=== PATIENT | male | born 1955 | race Caucasian/White ===

== ENCOUNTER → 2018-08-31 09:04 | Outpatient (CLI) | payer OTHER, SELFPAY ==
--- NOTE | 2018-08-31 | DI.US.S_ITS ---
PROCEDURE: US SCROTUM INDICATIONS: POSSIBLE INFECTION TECHNIQUE: Real-time scanning was performed of the scrotum and testicles, with image documentation. Color and pulse Doppler interrogation was performed of both testicles. COMPARISON: None. FINDINGS: Right: Testicle is normal in size at 4.3 x 1.5 x 2.8 cm, and homogenous in echotexture. Epididymis is normal in overall size and morphology. Sub-centimeters epididymal cyst. Small hydrocele. No varicoceles. Overlying scrotal skin is normal in thickness. Left: Testicle is normal in size at 4.4 x 1.5 x 3.4 cm, and homogeneous in echotexture. Epididymis is normal in overall size and morphology. Sub subcentimeter epididymal cyst. Small hydrocele. No varicoceles. Overlying scrotal skin is normal in thickness. Doppler: Color and pulse Doppler demonstrate normal and symmetric arterial flow in both testicles. IMPRESSION: 1. Tubular ectasia the left rete testis otherwise the testicles are normal bilaterally. Intermittent testicular torsion cannot be excluded and clinical correlation recommended. 2. Small bilateral hydroceles. 3. Small bilateral epididymal cysts. Dictated by: Michael OCAMPO Interpreted: Josesito Martinez MD on 08/31/2018 at 11:39 Approved by: Josesito Martinez M.D. on 08/31/2018 at 16:59
== END ==
PROVIDERS: PCP Family Medicine; Visit Provider Family Medicine
DX: N43.3 Hydrocele, unspecified (principal); N50.3 Cyst of epididymis
CPT/HCPCS: 76870

== ENCOUNTER → 2018-10-22 11:17 | Outpatient (CLI) | payer OTHER, SELFPAY ==
--- NOTE | 2018-10-22 | DI.MRI.S_ITS ---
PROCEDURE: MR LUMBAR SPINE WO CON INDICATIONS: LOW BACK PAIN TECHNIQUE: Noncontrast sagittal T1 spin echo and T2 fast echo, sagittal STIR, axial T1 and T2 fast spin echo through the lumbar spine. In cases with scoliosis, additional coronal T2 fast spin echo may be performed. COMPARISON: [facility] [place], CR, XR LUMBAR SPINE WITH OLBIQUES PLUS FLEXION EXTENSION, 10/08/2018, 15:06. FINDINGS: Image quality: Excellent. Alignment and Curvature: There is normal bony alignment. Bone Marrow: Degenerative endplate signal changes are present. No acute vertebral body compression fractures. There is surgical fusion of SI joints bilaterally. Spinal Cord: Conus medullaris terminates at the T12-L1 level. Visualized cord demonstrates normal signal and size. Paraspinous Soft Tissues: No paravertebral masses. L1-L2: Preserved disc height. Mild disc desiccation. There is minimal posterior disc bulge. The central canal is patent. No foraminal stenosis. L2-L3: Mild loss of disc height and disc desiccation. There is diffuse posterior disc bulge. Mild bilateral facet arthropathy and hypertrophy of ligamentum flavum. The central canal is mildly narrowed. Mild bilateral foraminal stenosis. L3-L4: [id number] loss of disc height and disc desiccation. There is diffuse posterior disc bulge and disc osteophyte complex. There is a superimposed posterior central left paramedian disc protrusion. Mild bilateral facet arthropathy and hypertrophy of ligamentum flavum. The central canal is moderately narrowed. [id number] bilateral foraminal stenosis. L4-L5: Moderate loss of disc height and disc desiccation. There is diffuse posterior disc bulge and disc osteophyte complex. There is a superimposed posterior central left paramedian disc protrusion. Mild bilateral facet arthropathy and hypertrophy of ligamentum flavum. The central canal is mildly narrowed. Moderate bilateral foraminal stenosis. L5-S1: Minimal loss of disc height and moderate disc desiccation. There is diffuse posterior disc bulge and disc osteophyte complex. There is small posterior central annular fissure. Mild bilateral facet arthropathy. The central canal is patent. Mild bilateral foraminal stenosis. IMPRESSION: 1. Multilevel degenerative disc disease and facet arthropathy as described. 2. Moderate central canal stenosis at L3-L4, and mild central canal stenosis at L2-L3 and L4-L5. 3. Multilevel foraminal stenosis as described. Dictated by: Skyla Bruner M.D. on 10/22/2018 at 15:40 Approved by: Skyla Bruner M.D. on 10/22/2018 at 17:39
== END ==
PROVIDERS: PCP Family Medicine; Visit Provider Physical Medicine & Rehabilitation
DX: M54.5 Low back pain (principal); M51.36 Other intervertebral disc degeneration, lumbar region; M51.37 Other intervertebral disc degeneration, lumbosacral region; M48.061 Spinal stenosis, lumbar region without neurogenic claudication; M48.07 Spinal stenosis, lumbosacral region; M47.816 Spondylosis without myelopathy or radiculopathy, lumbar region; M47.817 Spondylosis without myelopathy or radiculopathy, lumbosacral region
CPT/HCPCS: 72148

== ENCOUNTER → 2020-02-02 17:09 | Outpatient (CLI) | payer MEDICARE, MEDICAID, SELFPAY ==
--- NOTE | 2020-02-02 17:11 | DI.MRI.S_ITS ---
PROCEDURE: MR CERVICAL SPINE WO CON INDICATIONS: Spinal stenosis, cervical region TECHNIQUE: Noncontrast sagittal T1 spin echo and T2 fast spin echo, sagittal STIR, foraminal oblique sagittal T2 fast spin echo, and axial gradient echo or T2 fast spin echo through the cervical spine. COMPARISON: None. FINDINGS: Image quality: Excellent. Alignment and Curvature: Loss of normal cervical lordosis. Mild grade 1 retrolisthesis of C3 on C4, C4 and C5, and C5 on C6. Mild grade 1 anterolisthesis of C7 on T1. Bone Marrow: Marrow demonstrates normal overall signal. Spinal Cord: Visualized spinal cord has normal size and signal. No cerebellar tonsillar herniation. Paraspinous Soft Tissues: No paravertebral masses. Prevertebral soft tissues are normal in thickness. C2-C3: Disc desiccation. No significant canal, nor foraminal stenosis. C3-C4: Mild disc height loss and desiccation. Mild diffuse disc bulge. Mild facet and uncovertebral hypertrophy bilaterally. Mild canal stenosis. Mild right greater than left foraminal stenosis. C4-C5: Mild disc height loss and desiccation. Mild diffuse disc bulge. Mild bilateral facet hypertrophy. Mild canal stenosis. Mild bilateral foraminal stenosis. C5-C6: Moderate disc height loss and desiccation. Mild diffuse disc bulge. Moderate facet and uncovertebral hypertrophy bilaterally. Mild canal stenosis. Severe left and moderate right foraminal stenosis. Left C6 nerve root compression. C6-C7: Moderate disc height loss and desiccation. Mild diffuse disc bulge. Mild facet and uncovertebral hypertrophy bilaterally. Mild canal stenosis. Moderate left greater than right foraminal stenosis bilaterally. C7-T1: Mild disc height loss and desiccation. Mild diffuse disc bulge. Mild bilateral facet hypertrophy. Minimal canal stenosis. Mild bilateral foraminal stenosis. IMPRESSION: 1. Multilevel degenerative disc and facet disease, as well as uncovertebral hypertrophy. 2. Mild multilevel canal stenoses. 3. Multilevel foraminal stenoses, worst on the left at C5-C6 where there is associated C6 nerve root compression. Recommend correlation with clinical symptoms to ascertain relevance of this finding. Dictated by: Velma Lindsey M.D. on 02/03/2020 at 8:49 Approved by: Velma Lindsey M.D. on 02/03/2020 at 8:52
== END ==
PROVIDERS: PCP Family Medicine; Referring Provider Physical Medicine & Rehabilitation; Visit Provider Physical Medicine & Rehabilitation
DX: M48.02 Spinal stenosis, cervical region (principal); M50.31 Other cervical disc degeneration, high cervical region
CPT/HCPCS: 72141

== ENCOUNTER → 2024-03-01 09:16 | Outpatient (CLI) | payer MEDICARE, MEDICAID, SELFPAY ==
[2024-03-01 20:29] LABS: Basophils Absolute Auto 0 /uL (0-100); Basophils Percent Auto 0.5 % (0-2); Eosinophils Absolute Auto 0 /uL (0-450); Eosinophils Percent Auto 0.9 % (2-4); Hematocrit 37.9 % (41-53); Hemoglobin 12.4 g/dL (13.5-17.5); Lymphocytes Absolute Auto 1100 /uL (1100-4500); Lymphocytes Percent Auto 27.1 % (25-40); Mean Corpuscular HGB Conc 32.8 % (30-36); Mean Corpuscular Hemoglobin 31.4 PG (26-34); Mean Corpuscular Volume 95.7 fL (80-100); Monocytes Absolute Auto 500 /uL (0-900); Monocytes Percent Auto 13.6 % (3-14); Neutrophils Absolute Auto 2300 /uL (1500-7000); Neutrophils Percent Auto 57.9 % (50-75); Platelet Count 44 X10^3/uL (150-400); Red Blood Cell Count 3.96 X10^6/uL (4.5-5.9); Red Cell Distribution Width 15.6 % (11.6-14.8)
[2024-03-01 20:30] LABS: HEMOLYSIS < 15 (0-50)
[2024-03-01 20:38] LABS: BUN Creatinine Ratio 19.2 (6-22); Blood Urea Nitrogen 14 mg/dL (9-20); Calcium 8.5 mg/dL (8.4-10.2); Carbon Dioxide 26 mmol/L (22-32); Chloride 104 mmol/L (98-107); Cholesterol 134 mg/dL (140-199); Estimated Glomerular Filt Rate > 60 mL/min (>60); Glucose 98 mg/dL (80-110); HDL Cholesterol 34 mg/dL (40-60); LDL Cholesterol Calculated 83 mg/dL (<100); Sodium 137 mmol/L (137-145); Triglycerides 84 mg/dL (35-150)
[2024-03-01 20:41] LABS: Add Manual Diff / Slide Review SLIDE REVIEW
[2024-03-01 21:18] LABS: Platelet Estimate Decreased on smear; RBC Morphology Normal Morphology
[2024-03-01 21:21] LABS: Prostate Specific Antigen Scrn 0.549 ng/mL (0.1-4.0)
[2024-03-08 16:13] LABS: ANA Screen, IFA Negative (.)
[2024-03-09 11:10] LABS: Alder IgE <0.10 kU/L (Class 0); Alternaria alternata IgE <0.10 kU/L (Class 0); Aspergillus fumigatus IgE <0.10 kU/L (Class 0); Box Elder IgE <0.10 kU/L (Class 0); Cat Dander IgE <0.10 kU/L (Class 0); Cladosporium herbarum IgE <0.10 kU/L (Class 0); Cockroach IgE <0.10 kU/L (Class 0); Cottonwood IgE <0.10 kU/L (Class 0); D farinae IgE <0.10 kU/L (Class 0); D pteronyssinus IgE <0.10 kU/L (Class 0); Dog Dander IgE <0.10 kU/L (Class 0); Elm Tree IgE <0.10 kU/L (Class 0); IgE Mugwort <0.10 kU/L (Class 0); IgE Thistle,Russian <0.10 kU/L (Class 0); Immunoglobulin E 7 IU/mL (6-495); Mountain Cedar IgE <0.10 kU/L (Class 0); Mouse Urine Proteins IgE <0.10 kU/L (Class 0); Oak Tree IgE <0.10 kU/L (Class 0); Penicillium chrysogen IgE <0.10 kU/L (Class 0); Pigweed, Common IgE <0.10 kU/L (Class 0); Sheep Sorrel IgE <0.10 kU/L (Class 0); Silver Birch IgE <0.10 kU/L (Class 0); Timothy Grass IgE <0.10 kU/L (Class 0)
== END ==
PROVIDERS: PCP Family Medicine; Visit Provider Family Medicine
DX: M54.18 Radiculopathy, sacral and sacrococcygeal region (principal); Z13.6 Encounter for screening for cardiovascular disorders; Z12.5 Encounter for screening for malignant neoplasm of prostate; H04.129 Dry eye syndrome of unspecified lacrimal gland; Z13.1 Encounter for screening for diabetes mellitus; Z13.220 Encounter for screening for lipoid disorders; T78.40XA Allergy, unspecified, initial encounter; M54.50 Low back pain, unspecified; G62.9 Polyneuropathy, unspecified
CPT/HCPCS: 80048; 80061; 82785; 85025; 86003; 86038; G0103

== ENCOUNTER → 2024-04-12 13:31 | Outpatient (CLI) | payer MEDICARE, MEDICAID, SELFPAY ==
[2024-04-12 20:32] LABS: Reticulocyte Count, Percent 1.8 % (0.9-2.6)
[2024-04-12 20:40] LABS: HEMOLYSIS < 15 (0-50); Iron 62 ug/dL (49-181)
[2024-04-12 20:53] LABS: Percent Iron Saturation 23 % (20-50); Total Iron Binding Capacity 270 ug/dL (261-462)
[2024-04-12 21:02] LABS: Transferrin 197 mg/dL (206-381)
[2024-04-12 21:27] LABS: Vitamin B12 566 pg/mL (239-931)
== END ==
PROVIDERS: PCP Family Medicine; Visit Provider Family Medicine
DX: H10.10 Acute atopic conjunctivitis, unspecified eye (principal); J30.9 Allergic rhinitis, unspecified; L30.9 Dermatitis, unspecified; D64.9 Anemia, unspecified; D69.6 Thrombocytopenia, unspecified
CPT/HCPCS: 82607; 82785; 83540; 83550; 85045; 86003

== ENCOUNTER → 2024-05-18 13:33 | Outpatient (CLI) | payer MEDICARE, MEDICAID, SELFPAY ==
[2024-05-18 19:27] LABS: Add Manual Diff / Slide Review NO; Basophils Absolute Auto 0 /uL (0-100); Basophils Percent Auto 0.3 % (0-2); Eosinophils Absolute Auto 0 /uL (0-450); Eosinophils Percent Auto 0.9 % (2-4); Hematocrit 39.5 % (41-53); Hemoglobin 13.1 g/dL (13.5-17.5); Lymphocytes Absolute Auto 1000 /uL (1100-4500); Lymphocytes Percent Auto 33.5 % (25-40); Mean Corpuscular HGB Conc 33.1 % (30-36); Mean Corpuscular Hemoglobin 30.6 PG (26-34); Mean Corpuscular Volume 92.5 fL (80-100); Monocytes Absolute Auto 300 /uL (0-900); Monocytes Percent Auto 10.2 % (3-14); Neutrophils Absolute Auto 1700 /uL (1500-7000); Neutrophils Percent Auto 55.1 % (50-75); Red Blood Cell Count 4.28 X10^6/uL (4.5-5.9); Red Cell Distribution Width 16.2 % (11.6-14.8)
[2024-05-18 19:46] LABS: INR 1.1 (0.9-1.3); Prothrombin Time 12.7 SECONDS (9.4-12.5)
[2024-05-18 19:49] LABS: PTT Partial Thromboplastin Tim 39 SECONDS (25.1-36.5)
[2024-05-18 20:11] LABS: Platelet Count 28 X10^3/uL (150-400)
[2024-05-18 20:12] LABS: Anisocytosis 1+
== END ==
PROVIDERS: PCP Family Medicine; Visit Provider Family Medicine
DX: D69.6 Thrombocytopenia, unspecified (principal); D64.9 Anemia, unspecified
CPT/HCPCS: 85025; 85610; 85730

== ENCOUNTER → 2024-05-28 15:05 | Outpatient (CLI) | payer MEDICARE, MEDICAID, SELFPAY ==
[2024-05-28 19:08] LABS: Hematocrit 38.9 % (41-53); Hemoglobin 12.6 g/dL (13.5-17.5); Mean Corpuscular HGB Conc 32.3 % (30-36); Mean Corpuscular Hemoglobin 30.1 PG (26-34); Mean Corpuscular Volume 93.1 fL (80-100); Platelet Count 39 X10^3/uL (150-400); Red Blood Cell Count 4.18 X10^6/uL (4.5-5.9); Red Cell Distribution Width 16.9 % (11.6-14.8); White Blood Cell Count 5.2 X10^3/uL (4.5-11.0)
[2024-05-28 19:13] LABS: Add Manual Diff / Slide Review YES
[2024-05-28 19:58] LABS: Neutrophils Absolute Manual 4524 /uL (3000-5900); RBC Morphology Normal Morphology; Total Cells Counted 100
== END ==
PROVIDERS: PCP Family Medicine; Referring Provider Family Medicine; Visit Provider Family Medicine
DX: D64.9 Anemia, unspecified (principal); D69.6 Thrombocytopenia, unspecified
CPT/HCPCS: 85007; 85025

== ENCOUNTER → 2024-06-07 13:07 | Outpatient (CLI) | payer MEDICARE, MEDICAID, SELFPAY ==
[2024-06-07 19:15] LABS: Hematocrit 39.2 % (41-53); Hemoglobin 12.9 g/dL (13.5-17.5); Mean Corpuscular HGB Conc 32.9 % (30-36); Mean Corpuscular Hemoglobin 30.3 PG (26-34); Mean Corpuscular Volume 92.1 fL (80-100); Red Blood Cell Count 4.26 X10^6/uL (4.5-5.9); Red Cell Distribution Width 17.6 % (11.6-14.8); White Blood Cell Count 7.9 X10^3/uL (4.5-11.0)
[2024-06-07 19:33] LABS: Add Manual Diff / Slide Review YES; Platelet Count 30 X10^3/uL (150-400)
[2024-06-07 19:38] LABS: Neutrophils Absolute Manual 6715 /uL (3000-5900); Total Cells Counted 100
[2024-06-07 19:39] LABS: Anisocytosis 1+
== END ==
PROVIDERS: PCP Family Medicine; Visit Provider Family Medicine
DX: D69.3 Immune thrombocytopenic purpura (principal); D64.9 Anemia, unspecified; D69.6 Thrombocytopenia, unspecified; D72.810 Lymphocytopenia
CPT/HCPCS: 85007; 85025